=== PATIENT | female | born 1995 | race Caucasian/White ===

== ENCOUNTER 2024-02-15 10:23 | Emergency (ER) | payer BC, SELFPAY ==
[2024-02-15 10:25] VITALS: BP 165/102
[2024-02-15 11:00] LABS: COVID-19 Antigen Negative (Negative)
--- NOTE | 2024-02-15 11:18 | ED.GENMED ---
History of Present Illness
General
Chief Complaint: Breathing Problem
Source: patient
Exam Limitations: none
Time Seen by Provider: 02/15/24 10:52
Nursing documentation reviewed up to this point in time: agreed with
Travel History
Have you had any contact with someone who has COVID-19?: No
Do you have any symptoms of coronavirus? Fever > 100 degrees, chills, cough, shortness of breath, sore throat, loss of taste or smell, muscle aches, or headache?: No
History of Present Illness
History of Present Illness:
Patient is a 28-year-old female sent from urgent care for shortness of breath, nasal congestion and occasionally productive cough of clear sputum. Approximately 8 days ago the patient flew to [place] and then over the past week drove back from
[place] stopping the [place], etc. Approximately 5 days ago the patient started with nasal congestion and coughing. Patient denies smoking. Patient does have a history of eczema and seasonal allergies but no asthma. Patient denies fever
or chills, sore throat. Patient denies palpitations or chest pain. Patient denies any GI or symptoms. Patient denies any leg pain or swelling. Patient denies any history of PE or DVT. Patient denies any oral contraceptives
Past History
Past History
ED Past Medical History: Other (Eczema, seasonal allergies)
ED Past Surgical History: None
Social History
Tobacco: Non-smoker
Review of Systems
Review of Systems
All Other Systems: ROS reviewed and negative except as documented in HPI and ROS
Constitutional: Reports no symptoms
EENT: Reports runny nose; Denies sore throat
Respiratory: Reports cough and trouble breathing
Cardiac: Reports no symptoms
ABD/GI: Reports no symptoms
: Reports no symptoms
Musculoskeletal: Reports no symptoms
Skin: Reports no symptoms
Neurological: Reports no symptoms
Hematologic/Lymphatic: Reports no symptoms
Phy Exam
Physical Exam
Physical Exam:
Physical Exam
General: No apparent distress, alert and appropriate, well nourished, well hydrated
HENT: Normocephalic, supple with no lymphadenopathy, no thyromegaly. Nares with mild turbinate enlargement and clear rhinorrhea
Eyes: Clear sclera, conjuctiva without injection
Heart: Regular rhythm and rate. No S3, S4. No murmur.
Lungs: No respiratory distress, no stridor, lung sounds are coarse but clear with a rare end expiratory wheeze and equal bilaterally, chest wall symmetrical and nontender
Abdomen: Soft, nontender, no organomegaly, no CVA tenderness, BS good
Neuro: Alert and oriented x 3, CN II - XII intact, no motor focality, no cerebellar dysfunction
Skin: no rash
Psychiatric: well kept. interactive and cooperative
Extremities: No edema, cyanosis, tenderness, Good and equal peripheral pulses.
Course
Orders/Labs/Results
Orders:
Orders
02/15/24 10:31
COVID-19 Antigen Urgent
Source: Nasal Swab
Influenza A+B Rapid Molecular Urgent
SANDEE Source: Nasal Swab
Specimen Description:
02/15/24 11:18
Ipratropium/Albuterol Sulfate [Duoneb] 3 ml INH R NOW STA
Prednisone [Deltasone] 50 mg PO NOW STA
02/15/24 11:20
D-Dimer Urgent
Vital Signs
Initial and Last Documented VS:
Initial Vital Signs
Temp Pulse Resp BP Pulse Ox
98.2 F 98 20 165/102 98
02/15/24 10:25 02/15/24 10:25 02/15/24 10:25 02/15/24 10:25 02/15/24 10:25
Last Documented Vital Signs
Temp Pulse Resp BP Pulse Ox
98.2 F 98 20 165/102 98
02/15/24 10:25 02/15/24 10:25 02/15/24 10:25 02/15/24 10:25 02/15/24 10:25
*Pulse Oximetry
Patient hypoxic: no
*EKG
Interpreted by ED Provider?: NA
*Integration Specialist Interpretation
Rate: normal
Interpretation: normal
Heart Rate: 98
Rhythm: sinus
*Critical Care Note
Total Time (30-74mins, 75-104mins- exclusive of procedures): Not Applicable
Update Note
Update Note:
D-dimer is negative. Will treat the patient for bronchitis with steroids and inhaler.
ED Attending Note
-
Portions of this chart may have been created with voice recognition software.� Occasional wrong word or��sound alike� substitutions may have occurred due to the inherent limitations of voice recognition software.
Discharge Plan
Departure
Patient Disposition: Home (Routine Discharge)
Date of Disposition: 02/15/24
Time of Disposition: 12:31
Patient with high blood pressure during this ER visit?: Yes
Condition: Good
Covid-19: Negative COVID-19
Discharge Problem:
Acute bronchitis
Instructions: Acute Bronchitis, Adult (DC), BLOOD PRESSURE
Prescriptions:
New
prednisone 20 mg tablet
20 mg PO BID Qty: 14 0RF
albuterol sulfate [ProAir HFA] 90 mcg/actuation Hfa Aerosol Inhaler
1 puff INHALATION Q4HPRN PRN (Reason: shortness of breath) Qty: 8.5 0RF
Referrals:
Phuong Coulter DO [Family Provider] - Follow up in 5-7 days
Interventions
Interventions:
*Risk Screen - Suicide Last Done: 02/15/24 10:25
*General Assessment Last Done: 02/15/24 10:25
*Neglect/Abuse Screening Last Done: 02/15/24 10:25
ED- Cardiac Assessment Last Done: 02/15/24 11:46
ED- Pulmonary Assessment Last Done: 02/15/24 11:46
Discharge Date and Time
Print Language: [id number]
[2024-02-15] MEDS: DUONEB 3 ML INH (11:41)
[2024-02-15] MEDS: DELTASONE 50 MG PO (11:41)
[2024-02-15 11:55] LABS: D-Dimer 0.43 ug/mlFEU (0.00-0.50)
[2024-02-15 12:41] VITALS: BP 166/86
== END 2024-02-15 12:43 | disposition home or self-care (01) ==
LOC: EMR 10:23
PROVIDERS: EMERGENCY PHYSICIAN Emergency Medicine; FAMILY PHYSICIAN Family Medicine
DX: J20.9 Acute bronchitis, unspecified (principal)
CPT/HCPCS: 99283; 94640; 85379; 87502; 87811